=== PATIENT | male | born 1960 | race African-American/Black ===

== ENCOUNTER 2025-03-14 06:49 | Inpatient (IN) | payer MEDICARE, MEDICAID ==
[~2025-03-14] VITALS: Ht 175.3 cm; Wt 60.0 kg
[2025-03-14] MEDS ORDERED: PANTOPRAZOLE 80 MG in SODIUM CHLORIDE 0.9% 100 ML IV SCH (07:00)
[2025-03-14] MEDS: ONDANSETRON HCL 4MG/2ML INJ IV ONE (08:14)
[2025-03-14] MEDS: PANTOPRAZOLE SODIUM 40 MG/VIAL IV ONE (08:14)
[2025-03-14] MEDS: PIPERACILLIN/TAZO 3.375G/50ML 50 ML IV ONE (08:14)
[2025-03-14] MEDS: SODIUM CHLORIDE 0.9% (SEPSIS BOLUS) IV ONE (08:14)
[2025-03-14 08:27] LABS: INR 1.0
[2025-03-14 08:28] LABS: HEMATOCRIT. 38.3 % (42.0-52.0); HEMOGLOBIN. 11.7 g/dL (14.0-18.0); MEAN PLATELET VOLUME 9.7 fl (7.4-10.4); PLATELET 419 x1000/uL (130-400); RED BLOOD CELL COUNT 4.42 mill/uL (4.7-6.1); RED CELL DISTRIBUTION WIDTH 14.5 % (11.6-14.6)
[2025-03-14 08:33] LABS: CREATININE 0.7 mg/dL (0.6-1.3); UREA NITROGEN BLOOD 14 mg/dL (9-23)
[2025-03-14 08:34] LABS: TROPONIN I HIGH SENSITIVITY 4 ng/L (3.0-53)
[2025-03-14 08:35] LABS: ASPARTATE AMINOTRANSFERASE 27 IU/L (<34); BILIRUBIN DIRECT 0.2 mg/dL (<=3.0); BILIRUBIN TOTAL 0.7 mg/dL (0.1-1.0); PROTEIN TOTAL 7.5 g/dL (6.0-8.3)
[2025-03-14 08:39] LABS: BG BASE EXCESS 4.1 mmol/L (-2.0-3.0); BG CARBOXYHEMOGLOBIN 0.9 % (0.5-1.5); BG DEOXYHEMOGLOBIN 11.6 % (0.0-5.0); BG FLOW(L/min) 3.50 L/min; BG FRACTION INSPIRED OXYGEN 34; BG HCO3 ACT 28.1 mmol/L (21.0-28.0); BG METHEMOGLOBIN 0.2 % (0.5-1.5); BG OXYGEN SATURATION 88.3 % (94.0-98.0); BG OXYHEMOGLOBIN 87.3 % (94.0-98.0); BG PCO2 40.2 mmHg (35.0-48.0); BG PH 7.463 (7.350-7.450); BG PO2 54.5 mmHg (83.0-108.0); BG SAMPLE SITE RIGHT RADIAL; BG TOTAL HEMOGLOBIN 12.0 g/dL (13.5-17.5); BG VENT MODE NASAL CANNULA
[2025-03-14] MEDS: VANCOMYCIN 1G PREMIX 200 ML IV ONE (09:04)
[2025-03-14 10:26] LABS: BAND% 7.0 % (1.0-6.0); LYMPHOCYTES % MANUAL 11.0 % (20.0-50.0); MONOCYTES % MANUAL 3.0 % (2.0-8.0); NEUTROPHILS % MANUAL 79.0 % (45.0-75.0); PLATELET ESTIMATE SLIGHTLY INCREASED
[2025-03-14 14:41] VITALS: PULSE 125; RESP 18; O2SAT 96
[2025-03-14] MEDS: IPRATROPIUM/ALBUTEROL 0.5-3(2.5)MG/3ML NEB HHN SCH (14:41)
[2025-03-14] MEDS: SUCRALFATE 1G TABLET PO SCH (17:10)
[2025-03-14 22:26] LABS: CLARITY URINE CLEAR (CLEAR); COLOR URINE YELLOW (YELLOW); PH URINE 8.0 (4.5-8.0); SPECIFIC GRAVITY URINE 1.017 (1.005-1.030)
[2025-03-14 22:27] LABS: GLUCOSE URINE NEGATIVE (NEGATIVE); KETONES URINE NEGATIVE (NEGATIVE); LEUKOCYTE ESTERASE URINE NEGATIVE (NEGATIVE); NITRITE URINE NEGATIVE (NEGATIVE); OCCULT BLOOD URINE TRACE (NEGATIVE); PROTEIN URINE 1+ (NEGATIVE); UROBILINOGEN URINE 0.2 E.U./dL (0.2-1.0)
[2025-03-14 22:29] LABS: WBC URINE 0-2 /hpf (0-2)
[2025-03-14 22:30] LABS: BACTERIA URINE TRACE; SQUAMOUS EPITHELIAL CELL URINE NONE SEEN /lpf (RARE/1+)
[2025-03-15] VITALS (16 sets, daily range): BP systolic 91–116; BP diastolic 55–68; PULSE 85–110; RESP 18–32; TEMP 36.2–37.5856; O2SAT 89–97
[2025-03-15] MEDS: SODIUM CHLORIDE 0.9% 1,000 ML IV SCH (02:29)
[2025-03-15] MEDS: PIPERACILLIN/TAZO 3.375G/50ML 50 ML IV SCH (05:44)
[2025-03-15] MEDS ORDERED: MEROPENEM 1,000 MG in SODIUM CHLORIDE 0.9% 100 ML IV SCH (06:15)
[2025-03-15] MEDS ORDERED: LEVETIRACETAM 500MG in NACL 100ML PREMIX IV SCH (09:00)
[2025-03-15] MEDS: PANTOPRAZOLE 80 MG in SODIUM CHLORIDE 0.9% 100 ML IV SCH (09:24)
[2025-03-15] MEDS: POLYETHYLENE GLYCOL 3350 (17GM) 1 DOSE PACK PO SCH (09:24)
[2025-03-15] MEDS: LINEZOLID 600MG TABLET PEG SCH (09:24)
[2025-03-15] MEDS: MEROPENEM 1,000MG in SODIUM CHLORIDE 0.9% 100ML IV SCH (09:25)
[2025-03-15] MEDS: LEVETIRACETAM 750 MG in SODIUM CHLORIDE 0.9% 100 ML IV SCH (11:42)
[2025-03-16] VITALS (16 sets, daily range): BP systolic 97–127; BP diastolic 58–71; PULSE 79–109; RESP 16–29; TEMP 36.5–37.2; O2SAT 92–98
[2025-03-16] MEDS: DIPHENHYDRAMINE 50MG/ML VIAL IV PRN (04:44)
[2025-03-17] VITALS (10 sets, daily range): BP systolic 116–136; BP diastolic 65–77; PULSE 70–95; RESP 16–35; TEMP 36.6–36.9; O2SAT 95–98
[2025-03-17 07:24] LABS: HEMATOCRIT. 26.3 % (42.0-52.0); HEMOGLOBIN. 8.7 g/dL (14.0-18.0); MEAN PLATELET VOLUME 9.7 fl (7.4-10.4); PLATELET 383 x1000/uL (130-400); RED BLOOD CELL COUNT 3.14 mill/uL (4.7-6.1); RED CELL DISTRIBUTION WIDTH 14.7 % (11.6-14.6)
[2025-03-17 07:53] LABS: CREATININE 0.5 mg/dL (0.6-1.3); UREA NITROGEN BLOOD < 5 mg/dL (9-23)
[2025-03-17] MEDS: POTASSIUM CHLORIDE 20MEQ/PACKET PO SCH ×3 (12:38→17:24)
[2025-03-17 15:58] LABS: EOSINOPHILS % MANUAL 13.0 % (0.0-5.0); LYMPHOCYTES % MANUAL 29.0 % (20.0-50.0); MONOCYTES % MANUAL 5.0 % (2.0-8.0); NEUTROPHILS % MANUAL 53.0 % (45.0-75.0); PLATELET ESTIMATE NORMAL
[2025-03-18] VITALS (11 sets, daily range): BP systolic 123–156; BP diastolic 67–91; PULSE 82–98; RESP 14–28; TEMP 36.7–37.2; O2SAT 94–100
[2025-03-18 19:32] LABS: HEMATOCRIT. 29.6 % (42.0-52.0); HEMOGLOBIN. 9.5 g/dL (14.0-18.0); MEAN PLATELET VOLUME 9.6 fl (7.4-10.4); PLATELET 458 x1000/uL (130-400); RED BLOOD CELL COUNT 3.48 mill/uL (4.7-6.1); RED CELL DISTRIBUTION WIDTH 14.3 % (11.6-14.6)
[2025-03-18 19:46] LABS: CREATININE 0.4 mg/dL (0.6-1.3); UREA NITROGEN BLOOD < 5 mg/dL (9-23)
[2025-03-18 19:48] LABS: PHOSPHORUS 2.2 mg/dL (2.5-4.9)
[2025-03-18 20:02] LABS: EOSINOPHILS % MANUAL 15.0 % (0.0-5.0); LYMPHOCYTES % MANUAL 29.0 % (20.0-50.0); MONOCYTES % MANUAL 6.0 % (2.0-8.0); NEUTROPHILS % MANUAL 50.0 % (45.0-75.0); PLATELET ESTIMATE INCREASED
[2025-03-18] MEDS: POTASSIUM CHLORIDE 20MEQ/PACKET PEG NR ×2 (21:55→23:34)
[2025-03-19] VITALS (8 sets, daily range): BP systolic 110–138; BP diastolic 76–85; PULSE 74–97; RESP 18–24; TEMP 35.6–36.7; O2SAT 95–99
[2025-03-19] MEDS: MAGNESIUM 2 G PREMIX 50 ML IV NR (00:45)
[2025-03-19] MEDS: POTASSIUM CHLORIDE 20MEQ/PACKET PEG NR (01:27)
[2025-03-19] MEDS ORDERED: POTASSIUM CHLORIDE 20MEQ/PACKET PO NR (09:15)
[2025-03-19 14:23] LABS: BASOPHILS % 1.2 % (0.0-2.0); EOSINOPHILS % 14.1 % (0.0-5.0); HEMATOCRIT. 31.5 % (42.0-52.0); HEMOGLOBIN. 10.1 g/dL (14.0-18.0); LYMPHOCYTES % 25.0 % (20.0-50.0); MEAN PLATELET VOLUME 10.3 fl (7.4-10.4); MONOCYTES % 8.6 % (2.0-8.0); NEUTROPHILS % 51.1 % (40.0-76.0); PLATELET 486 x1000/uL (130-400); RED BLOOD CELL COUNT 3.71 mill/uL (4.7-6.1); RED CELL DISTRIBUTION WIDTH 14.9 % (11.6-14.6)
[2025-03-19 14:38] LABS: CREATININE 0.4 mg/dL (0.6-1.3); UREA NITROGEN BLOOD < 5 mg/dL (9-23)
[2025-03-20 04:00] VITALS: BP 137/78; PULSE 99; RESP 17; TEMP 36.7; O2SAT 95
[2025-03-20 07:00] LABS: BASOPHILS % 0.7 % (0.0-2.0); EOSINOPHILS % 11.8 % (0.0-5.0); HEMATOCRIT. 32.3 % (42.0-52.0); HEMOGLOBIN. 10.2 g/dL (14.0-18.0); LYMPHOCYTES % 18.9 % (20.0-50.0); MEAN PLATELET VOLUME 10.2 fl (7.4-10.4); MONOCYTES % 6.8 % (2.0-8.0); NEUTROPHILS % 61.8 % (40.0-76.0); PLATELET 468 x1000/uL (130-400); RED BLOOD CELL COUNT 3.81 mill/uL (4.7-6.1); RED CELL DISTRIBUTION WIDTH 14.6 % (11.6-14.6)
[2025-03-20 07:33] LABS: UREA NITROGEN BLOOD 6 mg/dL (9-23)
[2025-03-20 07:34] LABS: CREATININE 0.5 mg/dL (0.6-1.3)
[2025-03-20 07:36] LABS: ASPARTATE AMINOTRANSFERASE 20 IU/L (<34)
[2025-03-20 07:37] LABS: BILIRUBIN DIRECT 0.1 mg/dL (<=3.0); BILIRUBIN TOTAL 0.2 mg/dL (0.1-1.0); PHOSPHORUS 3.4 mg/dL (2.5-4.9); PROTEIN TOTAL 6.7 g/dL (6.0-8.3)
[2025-03-20 08:00] VITALS: BP 128/68; PULSE 70; RESP 17; TEMP 35.6; O2SAT 96
[2025-03-20] MEDS ORDERED: LEVE750T4 MT (10:14)
[2025-03-20] MEDS ORDERED: SUCR1TAB PO (10:14)
[2025-03-20 12:00] VITALS: BP 154/81; PULSE 118; RESP 22; TEMP 36.4; O2SAT 95
[2025-03-20 16:00] VITALS: BP 136/76; PULSE 98; RESP 20; TEMP 36.5; O2SAT 100
[2025-03-20 20:00] VITALS: BP 136/78; PULSE 136; RESP 18; TEMP 36.6; O2SAT 92
[2025-03-21] VITALS (14 sets, daily range): BP systolic 110–140; BP diastolic 55–80; PULSE 108–135; RESP 16–39; TEMP 36.4–36.5; O2SAT 91–98
[2025-03-21] MEDS: ONDANSETRON HCL 4MG/2ML INJ IV PRN ×2 (02:08→08:37)
[2025-03-21] MEDS: DEXT 5%/0.9% NACL 1,000 ML IV SCH (03:14)
[2025-03-21] MEDS: SODIUM CHLORIDE 0.9% 500 ML IV ONE (05:23)
[2025-03-21 06:22] LABS: FOLIC ACID (FOLATE) SERUM > 20.00 ng/mL (>5.38)
[2025-03-21 06:23] LABS: VITAMIN B12 SERUM 889 pg/mL (211-911)
[2025-03-21] MEDS: PANTOPRAZOLE SODIUM 40 MG/VIAL IV SCH (10:00)
[2025-03-21] MEDS ORDERED: NON FORMULARY MED XX SCH (10:30)
[2025-03-21 10:47] LABS: BG BASE EXCESS 4.4 mmol/L (-2.0-3.0); BG CARBOXYHEMOGLOBIN 1.2 % (0.5-1.5); BG DEOXYHEMOGLOBIN 13.2 % (0.0-5.0); BG FLOW(L/min) 6.00 L/min; BG FRACTION INSPIRED OXYGEN 44; BG HCO3 ACT 29.9 mmol/L (21.0-28.0); BG METHEMOGLOBIN 0.1 % (0.5-1.5); BG OXYGEN SATURATION 86.6 % (94.0-98.0); BG OXYHEMOGLOBIN 85.5 % (94.0-98.0); BG PCO2 48.7 mmHg (35.0-48.0); BG PH 7.406 (7.350-7.450); BG PO2 56.0 mmHg (83.0-108.0); BG SAMPLE SITE RIGHT BRACHIAL; BG TOTAL HEMOGLOBIN 11.4 g/dL (13.5-17.5); BG VENT MODE NASAL CANNULA
[2025-03-21] MEDS ORDERED: IPRATROPIUM/ALBUTEROL 0.5-3(2.5)MG/3ML NEB HHN PRN (11:00)
[2025-03-21] MEDS: IPRATROPIUM/ALBUTEROL 0.5-3(2.5)MG/3ML NEB HHN SCH (14:55)
[2025-03-21] MEDS: PIPERACILLIN/TAZO 3.375G/50ML 50 ML IV SCH (17:24)
[2025-03-21] MEDS: IRON SUCROSE COMPLEX 100 MG/5 ML ML IV SCH (17:25)
[2025-03-21 19:09] LABS: BASOPHILS % 0.6 % (0.0-2.0); EOSINOPHILS % 1.0 % (0.0-5.0); HEMATOCRIT. 33.5 % (42.0-52.0); HEMOGLOBIN. 10.5 g/dL (14.0-18.0); LYMPHOCYTES % 14.3 % (20.0-50.0); MEAN PLATELET VOLUME 9.2 fl (7.4-10.4); MONOCYTES % 5.7 % (2.0-8.0); NEUTROPHILS % 78.4 % (40.0-76.0); PLATELET 438 x1000/uL (130-400); RED BLOOD CELL COUNT 4.03 mill/uL (4.7-6.1); RED CELL DISTRIBUTION WIDTH 14.8 % (11.6-14.6)
[2025-03-21 19:26] LABS: CREATININE 0.6 mg/dL (0.6-1.3)
[2025-03-21 19:27] LABS: UREA NITROGEN BLOOD 14 mg/dL (9-23)
[2025-03-21] MEDS: SODIUM CHLORIDE 0.9% (SEPSIS BOLUS) IV ONE (20:49)
[2025-03-22] VITALS (14 sets, daily range): BP systolic 94–153; BP diastolic 58–124; PULSE 88–110; RESP 9–31; TEMP 36.4–36.9; O2SAT 92–99
[2025-03-22 06:03] LABS: BASOPHILS % 0.7 % (0.0-2.0); EOSINOPHILS % 8.5 % (0.0-5.0); HEMATOCRIT. 27.3 % (42.0-52.0); HEMOGLOBIN. 8.7 g/dL (14.0-18.0); LYMPHOCYTES % 7.4 % (20.0-50.0); MEAN PLATELET VOLUME 9.5 fl (7.4-10.4); MONOCYTES % 5.8 % (2.0-8.0); NEUTROPHILS % 77.6 % (40.0-76.0); PLATELET 339 x1000/uL (130-400); RED BLOOD CELL COUNT 3.25 mill/uL (4.7-6.1); RED CELL DISTRIBUTION WIDTH 14.9 % (11.6-14.6)
[2025-03-22 06:07] LABS: UREA NITROGEN BLOOD 13 mg/dL (9-23)
[2025-03-22 06:09] LABS: PHOSPHORUS 2.4 mg/dL (2.5-4.9)
[2025-03-22 06:33] LABS: CREATININE 0.4 mg/dL (0.6-1.3)
[2025-03-22] MEDS: ACETYLCYSTEINE 200MG/ML 20% VIAL 4ML INH SCH (18:00)
[2025-03-23] VITALS (14 sets, daily range): BP systolic 103–130; BP diastolic 56–108; PULSE 73–91; RESP 10–25; TEMP 36.4–36.8; O2SAT 91–100
[2025-03-23] MEDS: DOCUSATE SODIUM 100MG CAPSULE PO SCH (08:43)
[2025-03-23] MEDS: ASCORBIC ACID 500 MG TABLET GT SCH (08:47)
[2025-03-23] MEDS: FERROUS SULFATE 300MG/5ML UDC GT SCH (08:49)
[2025-03-23] MEDS: DOCUSATE SODIUM SUGAR FREE 100MG/10ML UDC NG SCH (22:11)
[2025-03-23] MEDS: SENNOSIDES 8.6MG TABLET PO SCH (22:12)
[2025-03-24] VITALS (15 sets, daily range): BP systolic 113–145; BP diastolic 66–84; PULSE 72–100; RESP 10–30; TEMP 36.4–36.8; O2SAT 95–100
[2025-03-24 11:51] LABS: HEMATOCRIT. 29.9 % (42.0-52.0); HEMOGLOBIN. 9.4 g/dL (14.0-18.0); MEAN PLATELET VOLUME 9.8 fl (7.4-10.4); PLATELET 437 x1000/uL (130-400); RED BLOOD CELL COUNT 3.56 mill/uL (4.7-6.1); RED CELL DISTRIBUTION WIDTH 15.0 % (11.6-14.6)
[2025-03-24 11:53] LABS: INR 1.0
[2025-03-24 12:04] LABS: CREATININE 0.5 mg/dL (0.6-1.3); UREA NITROGEN BLOOD < 5 mg/dL (9-23)
[2025-03-24] MEDS: KCL 20MEQ/100ML PREMIX 100 ML IV SCH (14:06)
[2025-03-24] MEDS: POTASSIUM CHLORIDE 20MEQ/PACKET PO SCH (14:26)
[2025-03-24 16:00] LABS: BASOPHILS % MANUAL 1.0 % (0.0-2.0); EOSINOPHILS % MANUAL 16.0 % (0.0-5.0); LYMPHOCYTES % MANUAL 25.0 % (20.0-50.0); MONOCYTES % MANUAL 5.0 % (2.0-8.0); NEUTROPHILS % MANUAL 53.0 % (45.0-75.0); PLATELET ESTIMATE NORMAL
[2025-03-24] MEDS ORDERED: KCL 20MEQ/100ML PREMIX 100 ML IV SCH (21:45)
[2025-03-25] VITALS (14 sets, daily range): BP systolic 108–149; BP diastolic 63–111; PULSE 76–113; RESP 17–25; TEMP 36.6–36.7; O2SAT 91–100
[2025-03-25] MEDS: KCL 20MEQ/100ML PREMIX 100 ML IV SCH (03:24)
[2025-03-25 13:42] LABS: HEMATOCRIT. 32.6 % (42.0-52.0); HEMOGLOBIN. 10.3 g/dL (14.0-18.0); MEAN PLATELET VOLUME 9.4 fl (7.4-10.4); PLATELET 467 x1000/uL (130-400); RED BLOOD CELL COUNT 3.89 mill/uL (4.7-6.1); RED CELL DISTRIBUTION WIDTH 15.3 % (11.6-14.6)
[2025-03-25 13:59] LABS: CREATININE 0.5 mg/dL (0.6-1.3); UREA NITROGEN BLOOD < 5 mg/dL (9-23)
[2025-03-25 14:01] LABS: PHOSPHORUS 1.7 mg/dL (2.5-4.9)
[2025-03-25 14:37] LABS: EOSINOPHILS % MANUAL 15.0 % (0.0-5.0); LYMPHOCYTES % MANUAL 44.0 % (20.0-50.0); MONOCYTES % MANUAL 5.0 % (2.0-8.0); NEUTROPHILS % MANUAL 36.0 % (45.0-75.0); PLATELET ESTIMATE INCREASED
[2025-03-25] MEDS: POTASSIUM CHLORIDE 20MEQ/PACKET PEG SCH (19:44)
[2025-03-25] MEDS: SENNOSIDES 8.6MG TABLET PEG SCH (20:30)
[2025-03-25] MEDS: SODIUM PHOSPHATE 20 MMOL in DEXT 5% WATER 243.3333 ML IV SCH (20:34)
[2025-03-25] MEDS: LEVETIRACETAM 500MG/5ML CUP PEG SCH (20:34)
[2025-03-25] MEDS: FAMOTIDINE 20MG TABLET PEG SCH (20:34)
[2025-03-26] VITALS (12 sets, daily range): BP systolic 117–155; BP diastolic 54–114; PULSE 75–109; RESP 16–28; TEMP 36.4–36.7; O2SAT 94–97
[2025-03-26 11:44] LABS: BASOPHILS % 1.1 % (0.0-2.0); EOSINOPHILS % 12.5 % (0.0-5.0); HEMATOCRIT. 34.4 % (42.0-52.0); HEMOGLOBIN. 11.0 g/dL (14.0-18.0); LYMPHOCYTES % 20.8 % (20.0-50.0); MEAN PLATELET VOLUME 9.5 fl (7.4-10.4); MONOCYTES % 8.6 % (2.0-8.0); NEUTROPHILS % 57.0 % (40.0-76.0); PLATELET 451 x1000/uL (130-400); RED BLOOD CELL COUNT 4.05 mill/uL (4.7-6.1); RED CELL DISTRIBUTION WIDTH 15.0 % (11.6-14.6)
[2025-03-26 11:48] LABS: INR 1.0
[2025-03-26] MEDS ORDERED: PROPOFOL 200MG/20ML VIAL IV ONE (13:28)
[2025-03-26 13:50] LABS: CREATININE 0.5 mg/dL (0.6-1.3); UREA NITROGEN BLOOD < 5 mg/dL (9-23)
== END 2025-03-26 19:28 | DRG 871 ==
LOC: ER 06:49 → EDBEDREQ 10:38 → EDBEDREQTM 10:38 → EDBEDREQSVC 10:38 → ENRESERV 23:13 → 5EST 03-15 00:19 → 7EST 03-19 02:55 → 5EST 03-21 07:00
PROVIDERS: ADMIT Internal Medicine; ATTEND Internal Medicine
PROC: 5A09357 Assistance with Respiratory Ventilation, Less than 24 Consecutive Hours, Continuous Positive Airway Pressure (ICD-10-PCS; 2025-03-18)
PROC: 5A0935A Assistance with Respiratory Ventilation, Less than 24 Consecutive Hours, High Flow/Velocity Cannula (ICD-10-PCS; 2025-03-21)
PROC: 0DB68ZX Excision of Stomach, Via Natural or Artificial Opening Endoscopic, Diagnostic (ICD-10-PCS; principal; 2025-03-26)
DX: A41.9 Sepsis, unspecified organism (principal); J69.0 Pneumonitis due to inhalation of food and vomit; J96.01 Acute respiratory failure with hypoxia; K25.4 Chronic or unspecified gastric ulcer with hemorrhage; K29.61 Other gastritis with bleeding; I69.354 Hemiplegia and hemiparesis following cerebral infarction affecting left non-dominant side; E83.39 Other disorders of phosphorus metabolism; R13.10 Dysphagia, unspecified; G40.909 Epilepsy, unspecified, not intractable, without status epilepticus; I48.0 Paroxysmal atrial fibrillation; R65.20 Severe sepsis without septic shock; Z79.01 Long term (current) use of anticoagulants; E11.9 Type 2 diabetes mellitus without complications; D64.9 Anemia, unspecified; I10 Essential (primary) hypertension; Z20.822 Contact with and (suspected) exposure to COVID-19; R13.12 Dysphagia, oropharyngeal phase; K44.9 Diaphragmatic hernia without obstruction or gangrene; K21.9 Gastro-esophageal reflux disease without esophagitis; K59.00 Constipation, unspecified; F41.9 Anxiety disorder, unspecified; E87.6 Hypokalemia; I25.10 Atherosclerotic heart disease of native coronary artery without angina pectoris; Z93.1 Gastrostomy status
CPT/HCPCS: 36415; 36600; 71045; 71250; 74018; 74176; 74230; 76700; 80048; 80076; 81003; 82375; 82607; 82728; 82746; 82805; 82962; 83540; 83550; 83605; 83735; 83880; 84100; 84132; 84145; 84484; 85025; 85044; 86850; 86900; 87426; 88305; 92610; 92611; 93005; 94070; 94640; 94664; 94667; 97161; 98960; 99291; A4606; J1200; J1953; J2185; J2405; J2470; J2543; J2704; J3373; J3475; J3480; J3490; J7030; J7042; J7050; J7060; J7608